=== PATIENT | female | born 1995 | race Native Hawaiian/Other Pacific Islander ===

== ENCOUNTER 2017-11-09 14:19 | Emergency (ER) | payer OTHER ==
[2017-11-09 14:36] VITALS: RESP 16
[2017-11-09 15:58] LABS: HCG,QUALITATIVE URINE NEGATIVE (NEGATIVE)
[2017-11-09 16:14] LABS: SQUAMOUS EPITHIAL 6 /hpf (0-5); URINE BACTERIA FEW (<OCC); URINE BILIRUBIN NEGATIVE (NEGATIVE); URINE BLOOD NEGATIVE (NEGATIVE); URINE CLARITY Clear (Clear); URINE COLOR Yellow (YELLOW); URINE GLUCOSE (UA) 1+ mg/dL (Normal); URINE LEUKOCYTE ESTERASE 3+ Leu/uL (Negative); URINE NITRATE NEGATIVE (NEGATIVE); URINE PROTEIN 1+ mg/dL (NEGATIVE)
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
[2017-11-09] MEDS ORDERED: cefTRIAXone (Rocephin) 250 mg Inj IM STA (17:42)
[2017-11-09 18:39] VITALS: BP 122/65; PULSE 74; TEMP 97.8; O2SAT 100
== END 2017-11-09 18:30 | disposition home or self-care (01) ==
LOC: C.ER 14:19
DX: N39.0 Urinary tract infection, site not specified (principal); T76.21XA Adult sexual abuse, suspected, initial encounter; E05.90 Thyrotoxicosis, unspecified without thyrotoxic crisis or storm
CPT/HCPCS: 81001; 84703; 96372; 99285; J0696